=== PATIENT | female | born 1955 | race Caucasian/White ===

== ENCOUNTER → 2018-10-30 23:21 | Outpatient (CLI) | payer BC ==
[2016-02-19 07:15] VITALS: BMI 35.6
[~2018-10-30 23:21] MED LIST: CALAN120 MG PO; DILAUDID4 MG PO; HYDROCODONE-APA1 TAB PO; KEPPRA500 MG PO; LISINOPRIL10 MG PO; MEDROL DOSE PACK4 MG PO; ROBAXIN-750750 MG PO; TOPAMAX100 MG PO; TOPAMAX25 MG PO; TRANSDERM-SCO1 PATCH TRANSDERM; XANAX0.25 MG PO; ZOFRAN ODT4 MG/UDTAB PO
== END | disposition home or self-care (01) ==
LOC: D.MAMMO 14:00
PROVIDERS: ATTEND Family Medicine
DX: Z12.31 Encounter for screening mammogram for malignant neoplasm of breast (principal)